=== PATIENT | female | born 1970 | race Two or more races ===

== ENCOUNTER 2018-01-15 10:12 | Outpatient (CLI) | payer OTHER | END 2018-01-15 17:00 | disposition home or self-care (01) | LOC: SONOGRAMA 10:12 | DX: N20.0 Calculus of kidney (principal); N30.00 Acute cystitis without hematuria ==

== ENCOUNTER 2018-01-15 12:20 | Outpatient (CLI) | payer OTHER | END 2018-01-15 12:27 | disposition home or self-care (01) | LOC: LAB 12:20 | DX: N30.00 Acute cystitis without hematuria (principal) ==

== ENCOUNTER 2018-09-27 12:28 | Outpatient (CLI) | payer OTHER | END 2018-09-27 12:34 | disposition home or self-care (01) | LOC: MAMO-SONO 12:28 | DX: Z12.31 Encounter for screening mammogram for malignant neoplasm of breast (principal) ==

== ENCOUNTER 2023-11-09 07:24 | Emergency (ER) | payer OTHER ==
[~2023-11-09] VITALS: Ht 162.6 cm; Wt 84.8 kg
[2023-11-09 09:35] LABS: HEMATOCRIT 43.6 % (36.0-45.00); HEMOGLOBIN 14.7 g/dL (12.0-15.00); MEAN CELL VOLUME 82.3 fL (80.00-100.00); MEAN CORPUSCULAR HEMOGLOBIN 27.8 pg (27.00-32.0); MEAN CORPUSCULAR HGB CONC 33.7 g/dl (32.0-36.0); PLATELET COUNT 234 K/uL (150-450)
[2023-11-09 10:06] LABS: ALBUMIN 3.5 gm/dL (3.4-5.0); BILIRUBIN TOTAL 0.37 mg/dL (0.3-1.2); CALCIUM 8.8 mg/dL (8.5-10.1); CREATININE SERUM 0.67 mg/dL (0.55-1.02); GFR 92.79; GLOBULINA 3.6 G/DL (2.4-3.5); POTASSIUM 4.17 mEq/L (3.5-5.1); TOTAL PROTEIN 7.1 gm/dL (6.4-8.2)
[2023-11-09 10:08] LABS: PH,URINE 5.5 (5.0-8.0); URINE APPEARANCE Clear; URINE BILIRRUBIN Negative (NEGATIVE); URINE BLOOD Negative; URINE COLOR Yellow; URINE GLUCOSE Negative (NEGATIVE); URINE LEUKOCYTE Negative; URINE NITRATE Negative; URINE PROTEIN Negative (NEGATIVE); URINE UROBILINOGEN 0.2 E.U./dl
[2023-11-09 10:12] LABS: URINE BACTERIA 15.1 uL (0.0-1933); URINE WBC 2.9 uL (0.0-23.2)
[2023-11-09 11:12] LABS: URINE EPITHELIAL CELLS 0.7 uL (0.0-38.8)
[2023-11-09] MEDS ORDERED: DICLOFENAC SODI75 MG PO (11:32)
== END 2023-11-09 11:54 | disposition home or self-care (01) ==
LOC: ER 07:25
PROVIDERS: General Practice
DX: R10.32 Left lower quadrant pain (principal); Z91.040 Latex allergy status; K57.90 Diverticulosis of intestine, part unspecified, without perforation or abscess without bleeding